=== PATIENT | female | born 1965 | race Two or more races ===

== ENCOUNTER → 2020-01-09 | Outpatient (CLI) | payer OTHER ==
--- NOTE | 2020-01-09 09:19 | RAD ---
EXAM: Abdomen sonogram. HISTORY: Elevated liver enzyme laboratory values. TECHNIQUE: Sonographic imaging of the abdomen was performed. COMPARISON: None. FINDINGS: The liver is normal in size. There is hepatic steatosis. No focal hepatic lesion is seen. The common bile duct is normal in caliber. The gallbladder is surgically absent. The kidneys, spleen, pancreas and inferior vena cava are unremarkable. The aorta is partially obscured due to bowel gas. IMPRESSION: 1. Hepatic steatosis. 2. Cholecystectomy. Electronically signed by: Kaelyn Byrne MD (01/09/2020 9:17 AM) [facility]
== END ==
LOC: US 09:08
PROVIDERS: ATTEND Physician Assistant Medical
DX: K76.0 Fatty (change of) liver, not elsewhere classified (principal); R74.8 Abnormal levels of other serum enzymes; Z90.49 Acquired absence of other specified parts of digestive tract
CPT/HCPCS: 76700